=== PATIENT | female | born 1970 | race Two or more races ===

== ENCOUNTER 2018-05-13 18:25 | Emergency (ER) | payer OTHER ==
--- NOTE | 2018-05-13 19:17 | EDPHY ---
H & P Smoking Status: Never smoked Time Seen by Provider: 05/13/18 19:06 HPI/ROS: CHIEF COMPLAINT: Abdominal pain, flank pain HISTORY OF PRESENT ILLNESS: 48-year-old female presents to the emergency department with left-sided abdominal and flank pain. The pain began 3 days ago and today became acutely worse. She vomited 1 time she thinks because the pain was so bad. She has never had pain like this before in the past. She has no history of kidney stones. No reported trauma. She denies any pain in her chest or difficulty breathing. She thought she noted some blood in her urine. Denies any other dysuria, urgency or frequency with urination. No fevers or chills. REVIEW OF SYSTEMS: Constitutional: No fever, no chills. Eyes: No double or blurry vision. ENT: No sore throat. Respiratory: No cough, no shortness of breath. Cardiac: No chest pain. Gastrointestinal: Abdominal and flank pain. Genitourinary: No dysuria. Musculoskeletal: No neck or back pain. Skin: No rashes. Neurological: No headache. (Shavonne Morales) Past Medical/Surgical History: Negative (Shavonne Morales) Social History: Single (Shavonne Morales) Physical Exam: General Appearance: Alert, no distress. Eyes: Pupils equal and round. Extraocular motions are all intact. ENT: Mouth: Mucous membranes moist. Respiratory: No wheezing, rhonchi, or rales, lungs are clear to auscultation. Cardiovascular: Regular rate and rhythm. Gastrointestinal: Abdomen is soft and nontender, no masses, no rebound or guarding, bowel sounds normal. Positive CVA tenderness on the left, none on the right. Neurological: Alert and oriented x 3, cranial nerves II through XII grossly intact Skin: Warm and dry, no rashes. Musculoskeletal: Nontender to palpate along the cervical, thoracic or lumbar spine. Neck is supple. Extremities: Full range of motion and no peripheral edema. Psychiatric: Patient is oriented X 3, there is no agitation. (Shavonne Morales) Constitutional: Initial Vital Signs Temperature (C) 37.2 C 05/13/18 18:29 Heart Rate 77 05/13/18 18:29 Respiratory Rate 24 H 05/13/18 18:29 Blood Pressure 140/98 H 05/13/18 18:29 O2 Sat (%) 97 05/13/18 18:29 O2 Delivery Mode Room Air Allergies/Adverse Reactions: No Known Allergies Allergy (Unverified 05/13/18 18:28) Home Medications: Medication Instructions Recorded Ibuprofen [Motrin (*)] 800 mg PO Q6-8PRN #30 tab 11/10/15 Tamsulosin HCl [Flomax] 0.4 mg PO DAILY #10 cap 05/13/18 Medical Decision Making - Diagnostics Imaging: Discussed imaging studies w/ food concession manager Radiologist ED Course/Re-evaluation: 48-year-old female presents to the emergency department with left-sided abdominal pain and flank pain. Patient had blood in her urine noted. I was concerned about possible kidney stone. I discussed the pros and cons of CT imaging of her abdomen and pelvis including radiation exposure the patient agrees with CT scan. CT imaging reveals 3 mm stone at the left UVJ with mild hydronephrosis. Patient was given IV Toradol and oral Flomax. She was feeling much better and feels that her pain has resolved. She feels comfortable being discharged home. She was given a urine strainer as well as urology referral. She will return if she develops recurring pain, vomiting, or any other concerns. (Shavonne Morales) I did not see this patient while she was in the emergency department. However her care was discussed with the PA while the patient was in the department. I agree with treatment plan and management (Poncho Musa) Differential Diagnosis: Including but not limited to kidney stone, kidney infection, urinary tract infection, diverticulitis, acute appendicitis (Shavonne Morales) - Data Points Laboratory Results: Laboratory Results 05/13/18 19:20 05/13/18 19:20 Medications Given: Discontinued Medications Hydromorphone HCl (Dilaudid) 0.5 mg IVP EDNOW ONE Stop: 05/13/18 20:29 Last Admin: 05/13/18 20:31 Dose: 0.5 mg Sodium Chloride (Ns) 1,000 mls @ 0 mls/hr IV ONCE ONE; Wide Open PRN Reason: Protocol Stop: 05/13/18 20:29 Last Admin: 05/13/18 20:30 Dose: 1,000 mls Ketorolac Tromethamine (Toradol) 15 mg IVP EDNOW ONE Stop: 05/13/18 21:15 Last Admin: 05/13/18 21:20 Dose: 15 mg Tamsulosin HCl (Flomax) 0.4 mg PO EDNOW ONE Stop: 05/13/18 21:16 Last Admin: 05/13/18 21:20 Dose: 0.4 mg Departure - Departure Disposition: Home, Routine, Self-Care Clinical Impression: Kidney stone on left side Condition: Good Instructions: Kidney Stones (ED) Additional Instructions: Drink plenty of fluids. Return to the emergency department if you develop difficulty urinating, fever, increasing pain, vomiting, or if you feel worse in any way. You should follow up with urologist. Strain your urine. Flomax daily until you pass the stone. Referrals: Karen Narvaez MD [Medical Doctor] - 2-3 days without fail (Urologist on-call ) Prescriptions: Tamsulosin HCl [Flomax] 0.4 mg PO DAILY #10 cap
[2018-05-13 19:33] LABS: PLATELET COUNT 212 10^3/uL (150-400)
[2018-05-13] MEDS ORDERED: HYDROmorphONE/DILAUDID 1 MG/ML INJ ONE (20:27)
[2018-05-13] MEDS: NS 1,000 ML IV ONE (20:30)
[2018-05-13] MEDS: HYDROmorphONE/DILAUDID 2 MG/ML INJ IVP ONE (20:31)
[2018-05-13] MEDS: TAMSULOSIN HCL 0.4 MG CAP PO ONE (21:20)
[2018-05-13] MEDS: KETOROLAC 15 MG/1 ML SDV IVP ONE (21:20)
[2018-05-13 22:46] VITALS: BP 121/82
== END 2018-05-13 22:46 | disposition home or self-care (01) ==
DX: N13.2 Hydronephrosis with renal and ureteral calculous obstruction (principal)
CPT/HCPCS: 96374; J1170; J1885